=== PATIENT | female | born 1985 | race Caucasian/White ===

== ENCOUNTER → 2021-04-11 | Day surgery (SDC) | payer OTHER ==
[~2021-04-11] VITALS: Ht 160 cm; Wt 65.3 kg
[~2021-04-11] MED LIST: DAILY VITAMIN1 EAC6 PO; NORCO5 PO
--- NOTE | ~2021-04-11 | O ---
[facility] [place] [address] OPERATIVE REPORT Name: MILAN ROJAS Room #: [facility] Abida#: [id number] Admission: 04/11/21 Attend Phys: Yolande Marino DO Discharge: Date of : 87 Report #: [id number] THIS REPORT FOR: cc: FAM - Family physician unknown FAM - Family physician unknown Yolande Marino DO ~ DATE OF SERVICE: 04/11/2021 PREOPERATIVE DIAGNOSIS: Ventral hernia. POSTOPERATIVE DIAGNOSES: 1. Incarcerated umbilical hernia. 2. Incarcerated supraumbilical hernia x2. SURGEON: Yolande Marino DO ANESTHESIA: General endotracheal and local anesthetic. PROCEDURE: Laparoscopic ventral herniorrhaphy with mesh. SPECIMENS: None. ESTIMATED BLOOD LOSS: 10 mL INTRAOPERATIVE FINDINGS: A small 0.5 umbilical hernia containing preperitoneal fat. There was also a supraumbilical hernia containing incarcerated falciform ligament that measured 3 x 3.5 cm and an additional hernia that measured 1 x 0.5 cm just superior to this hernia, total hernia defect size was 5 x 3 cm. A piece of 10 x [address] mesh was used for repair. INDICATIONS FOR PROCEDURE: The patient is a 35-year-old female who was seen and evaluated in my office for complaints of an umbilical and supraumbilical hernia. The patient was seen and examined was discussed the procedure including risks, benefits and alternatives. All questions were answered to the patient's satisfaction. Informed consent was obtained. DESCRIPTION OF PROCEDURE: After the patient was brought back to the operating room and placed in supine position, general anesthesia was induced. SCDs were placed on bilateral extremities and prophylactic antibiotics were administered. Next, after a timeout was performed, the abdomen was accessed via a left upper quadrant Veress needle. The abdomen was insufflated to 15 mm of CO2. Next, using a Visiport technique, 5 mm trocar was placed in the left lateral mid abdomen. The abdomen was inspected, noting no injury to underlying structures. The Veress needle was exchanged for a 5 mm trocar. An 8 mm trocar was then placed within the left lower quadrant under direct visualization. Local anesthetic was infiltrated in all the surgical sites. Next, attention was then [address] [address] OPERATIVE REPORT Name: MILAN ROJAS Room #: [facility] M.R.#: [id number] Admission: 04/11/21 Attend Phys: Yolande Marino DO Discharge: Date of : 87 Report #: [id number] turned to the anterior abdominal wall. There was noted to be incarcerated preperitoneal fat within an umbilical hernia. This was grasped and using monopolar laparoscopic scissors, the peritoneum was taken down and the preperitoneal fat was reduced. Dissection was carried out in a cephalad direction, noting incarcerated falciform ligament within a supraumbilical hernia defect. This was removed at the falciform ligament was taken down towards the level of the inferior aspect of the liver. Next, the hernia defects were visualized. There was noted to be an additional defect just superior to the larger supraumbilical hernia. This was also containing preperitoneal fat. This was reduced as well with palpation from the external surface. There were no palpable contents within the hernias. Therefore, I selected a piece of Ventralight ST mesh, size 15 x 10 cm that was used for repair. This did have an Echo Positioning System that was brought out through the central aspect of the hernia and was secured in a vertical fashion using the AbsorbaTack tacker. Once the mesh was tacked circumferentially as well as within each quadrant, the Echo Positioning System was removed. The mesh lied in excellent position. Of note, the abdomen was desufflated to 8 mm of CO2 while positioning and securing the mesh. The abdomen was then desufflated. The trocars were removed. Hemostasis was then noted to be excellent. Additional local anesthetic was infiltrated in all surgical sites. The skin was then closed with 4-0 Monocryl in a subcuticular manner and Dermabond was applied for sterile dressing. A tonsil sponge was then placed within the umbilicus and a 4 x 4 was placed over the supraumbilical defect site and a pressure dressing was applied using a Tegaderm dressing. All sponge and instrument count was reported as correct at the end of the case. The patient was awakened from anesthesia in the operating room and taken to the PACU in stable condition for further recovery. By: [id number] Yolande Marino DO /nt
[2021-04-11 07:22] VITALS: BP 114/63
[2021-04-11 10:22] VITALS: BP 114/63
== END | disposition home or self-care (01) ==
LOC: OR 05:16
PROVIDERS: ATTEND Surgery
DX: K42.0 Umbilical hernia with obstruction, without gangrene (principal); K43.6 Other and unspecified ventral hernia with obstruction, without gangrene; Z20.822 Contact with and (suspected) exposure to COVID-19
CPT/HCPCS: 50010; 50101; 50386; 50555; 50848; 50979; 52265; 53307; 53310; 54022; 54118; 56462; 56526; 57092; 58574; 62110; 62900; 70005